=== PATIENT | female | born 1935 | race Caucasian/White ===

== ENCOUNTER → 2017-04-04 | Outpatient (CLI) | payer OTHER, SELFPAY ==
[~2017-04-04] MED LIST: ACULAR10 ML OD; ALBUTEROL17 G1 IH; ALBUTEROL17 GM INH; ASPIRIN81 MG PO; BACTRIM DS TABL1 TA2 PO; BACTRIM DS TABL1 TAB PO; CIPRO PO; CITALOPRAM HBR10 MG PO; CLOPIDOGREL75 MG PO; DARVOCET-N 1001 TA1 PO; DARVOCET-N 1001 TA2 PO; DARVOCET-N 1001 TAB PO; DILTIAZEM HCL30 MG PO; DILTIAZEM PO; DOXYCYCLINE150 MG PO; ELIQUIS5 MG PO; ILOTYCIN OD; K-TAB ER20 MEQ PO; KLONOPIN0.25 MG/TA PO; LASIX20 MG PO; LEVAQUIN PO; LIPITOR40 MG PO; LORAZEPAM; LORTAB 5/500 TA1 TA1 PO; NORCO1 TAB 10/3 PO; NYSTATIN5 ML PO; PERCOCET5/325 PO; PHENERGAN/CODEINE PO; PLAVIX PO; PREDNISONE PO; PROAIR HFA8.5 GM IH; PROTONIX PO; SIMVASTATIN10 MG PO; SYMBICORT INH; TESSALON PERLE100 M1 PO; UNKNOWN B/P MED; UNKOWN B/P MED; ZITHROMAX PO
--- NOTE | ~2017-04-04 | US37 ---
[facility] A Service of [facility] RADIOLOGY TEXT RESULTS PATIENT: DURGA THOMSON LOCATION: CNIV : 36 UNIT #: [id number] AGE: [address]: Brett Kilgore MD SEX: F ORDER DR: [id number] [facility] [address] [place], [place] [address] [id number] O MR#: [id number] Acc #: [id number] NAME: DURGA THOMSON : 1935 SEX: F STUDY DATE/TIME: 04/04/2017 12:44 UNIT: CNIV ROOM: STUDY DESCRIPTION: US Carotid W/Doppler Bilateral Attending Physician: Brett Kilgore M.D. Referring Physician: Brett Kilgore M.D. Ordering Physician: Brett Kilgore M.D. Primary Care Physician: Aure Samayoa M.D. MEDICAL IMAGING REPORT This report is preliminary unless electronic signature is present EXAM Bilateral carotid duplex Doppler INDICATIONS Headache. Confusion and loss of balance and history of heart disease. Previous history of TIA and 2007. The patient reports right vision loss for the past 2-3 months with hypertension. PROCEDURE Tran-scale color Doppler and spectral imaging bilateral carotid vertebral systems. Carotid flow assessed using NASCET like methodology. COMPARISON Minimal atherosclerotic irregularity in the carotid arteries. Peak systolic velocity in the right ICA measures 126 cm/sec in the distal segment and on the left measures 76 cm/sec. Flow in the external carotid and vertebral arteries is directed antegrade. ICA:CCA ratio measures 1.8 on the right and 0.9 on the left. IMPRESSION 1. Minimal atherosclerotic irregularity. 2. Slightly elevated velocity in the distal right ICA, consistent with a 50% to 69% stenosis based on NASCET like methodology. Dictated by... Julian Leon M.D. THIS IS AN ELECTRONICALLY VERIFIED REPORT Julian Leon M.D. at 04/08/2017 8:27 AM EED/eros [facility] A Service of [facility] RADIOLOGY TEXT RESULTS PATIENT: DURGA THOMSON LOCATION: CNIV : 36 UNIT #: [id number] AGE: [address]: Brett Kilgore MD SEX: F ORDER DR: TD: 04/07/2017 14:57 JOB #: [id number] MEDICAL IMAGING REPORT Page 1 of 1 COPY
== END | disposition home or self-care (01) ==
LOC: CNIV 12:16
DX: G45.3 Amaurosis fugax (principal); H35.3132 Nonexudative age-related macular degeneration, bilateral, intermediate dry stage; Z96.1 Presence of intraocular lens; I36.1 Nonrheumatic tricuspid (valve) insufficiency; I51.89 Other ill-defined heart diseases
CPT/HCPCS: 93306; 93880